=== PATIENT | female | born 1990 | race Caucasian/White ===

== ENCOUNTER 2018-08-06 09:47 | Emergency (ER) | payer MEDICARE, MEDICAID ==
[2018-08-06 10:00] VITALS: BP 105/66
[2018-08-06 10:09] LABS: Influenza A Molecular POSITIVE (Negative)
[2018-08-06] MEDS ORDERED: Acetaminophen TAB* 325 MG PO ONE (10:17)
--- NOTE | 2018-08-06 10:25 | UC ---
FLU HPI - HPI Summary HPI Summary: 3 DAYS OF COUGH, CONGESTION, ST, MARTINEZ, BODY ACHES, NAUSEA. NO FLU SHOT THIS SEASON. LIVES IN A HAL[place]AY - LOTS OF ILLNESS AROUND. - History of Current Complaint Chief Complaint: UCRespiratory Stated Complaint: FLU LIKE SYM Time Seen by Provider: 08/06/18 09:56 Hx Obtained From: Patient Hx Last Menstrual Period: 05/21/19 Onset/Duration: Gradual Onset, Lasting Days, Still Present Severity Currently: Moderate Severity Initially: Moderate Pain Intensity: 3 Pain Scale Used: 0-10 Numeric Associated Signs & Symptoms: Positive: Fever, Myalgia, Cough, Sore Throat, Nasal Congestion, Headache - Allergy/Home Medications Allergies/Adverse Reactions: Allergies Allergy/AdvReac Type Severity Reaction Status Date / Time asenapine [From Saphris] Allergy Severe Difficulty Verified 08/06/18 10:01 Breathing clindamycin [From Cleocin] Allergy Severe Rash Verified 08/06/18 10:00 Home Medications: Home Medications Melatonin 10 mg PO DAILY 08/06/18 [History Confirmed 08/06/18] Paliperidone ER TAB* [Invega ER TAB*] 9 mg PO DAILY 08/06/18 [History Confirmed 08/06/18] Sertraline* [Zoloft*] 100 mg PO DAILY 08/06/18 [History Confirmed 08/06/18] buPROPion TAB* [Wellbutrin TAB*] 75 mg PO DAILY 08/06/18 [History Confirmed ] PMH/Surg Hx/FS Hx/Imm Hx Other Psychological History: MENTAL ILLNESS - HALFWAY RESIDENT - Surgical History Surgical History: Yes Surgery Procedure, Year, and Place: tonsillectomy - Social History Alcohol Use: Rare Substance Use Type: None Smoking Status (MU): Never Smoked Tobacco Household Exposure Type: Cigarettes Review of Systems All Other Systems Reviewed And Are Negative: Yes Constitutional: Positive: Fever, Chills, Fatigue ENT: Positive: Sore Throat, Nasal Discharge Respiratory: Positive: Cough Cardiovascular: Positive: Negative Gastrointestinal: Positive: Nausea Musculoskeletal: Positive: Myalgia Neurological: Positive: Headache Physical Exam Triage Information Reviewed: Yes Appearance: No Pain Distress, Well-Nourished, Ill-Appearing - MILDLY Vital Signs: Initial Vital Signs Temp 100.9 F 08/06/18 09:52 Pulse 110 08/06/18 09:52 Resp 16 08/06/18 09:52 BP 105/66 08/06/18 09:52 Pulse Ox 99 08/06/18 09:52 Laboratory Tests 08/06/18 10:04 Influenza A (Rapid) Positive A Vital Signs Reviewed: Yes Eyes: Positive: Conjunctiva Clear ENT: Positive: Hearing grossly normal, Pharynx normal, TMs normal Neck: Positive: Supple, Nontender, No Lymphadenopathy Respiratory Exam: Normal Cardiovascular Exam: Normal Abdomen Description: Positive: Soft Musculoskeletal: Positive: No Edema Neurological: Positive: Alert Psychological: Positive: Age Appropriate Behavior Skin: Negative: Rashes Flu Course/Dx - Differential Dx/Diagnosis Provider Diagnosis: Influenza A Discharge - Sign-Out/Discharge Documenting (check all that apply): Patient Departure All imaging exams completed and their final reports reviewed: No Studies - Discharge Plan Condition: Stable Disposition: HOME Prescriptions: Oseltamivir CAP* [Tamiflu CAP*] 75 mg PO BID #10 cap Patient Education Materials: Influenza (ED) Referrals: Joselin Gordon MD [Primary Care Provider] - If Needed Additional Instructions: SWAB POSITIVE FOR INFLUENZA A. TAMIFLU 75MG TWICE DAILY FOR 5 DAYS. OTC MEDS NEEDED FOR FEVER, BODY ACHES. STAY WELL HYDRATED AND RESTED. SEEK FOLLOW-UP IF YOU ARE NOT IMPROVING EXPECTED. - Billing Disposition and Condition Condition: STABLE Disposition: Home
== END 2018-08-06 10:25 | disposition home or self-care (01) ==
LOC: UCEAST 09:47
DX: J09.X2 Influenza due to identified novel influenza A virus with other respiratory manifestations (principal); Z88.1 Allergy status to other antibiotic agents; F99 Mental disorder, not otherwise specified
CPT/HCPCS: 99212; A9270-GY; G0463